=== PATIENT | male | born 1975 | race Caucasian/White ===

== ENCOUNTER 2022-08-03 08:37 | Emergency (ER) | payer BC, OTHER ==
[~2022-08-03] VITALS: Ht 180 cm; Wt 63.5 kg
--- NOTE | 2022-08-03 09:47 | ED Lower Extremity ---
General Chief Complaint: Lower Extremity Stated Complaint: LT ANKLE PAIN Nursing Triage Note: STARTED HAVING PAIN LAST NIGHT AND NOW IS UNABLE TO BEAR WEIGHT WITHOUT PAIN. Source: patient Exam Limitations: no limitations ([place]AN) History of Present Illness Date Seen by Provider: Aug 03, 2022 Time Seen by Provider: 09:40 Initial Comments Patient is a 47 y/o M with history of back stimulator placed in left side who pr esents to the ER with CC of left ankle pain onset a couple days ago. Patient reports he has been having sharp pain over the anterior portion of the left lower extremity that he rates at a 8/10. States movement of the left ankle makes it worse and he is unable to bear weight on the ankle without pain. Patient reports last Ibuprofen dose at 10:30 pm last night but it did not help. He works at [employer]. Denies any numbness or tingling. Pain/Injury Location: left ankle ([place]AN) Allergies and Home Medications Allergies Coded Allergies: No Known Drug Allergies (Unverified , 08/03/22) Patient Home Medication List Home Medication List Reviewed: Yes ([place]) Home Medication List Reviewed: Yes (ADELA HERRERA MD) Cephalexin (Cephalexin) 500 Mg Tablet, 500 MG PO TID Prescribed by: ADELA HERRERA on 08/03/22 1107 Review of Systems Musculoskeletal: joint pain, joint swelling ([place]) Constitutional: see HPI (ADELA HERRERA MD) Past Iyomwxb-Aiqkjk-Yhgaiu Hx Patient Social History Tobacco Use?: Yes Tobacco type used: Cigarettes Smoking Status: Current Everyday Smoker Use of E-Cig and/or Vaping dev: Yes E-Cig or Vaping type used: Nicotine Substance use?: No Alcohol Use?: Yes Alcohol type: Beer Alcohol Frequency: Once in a while Pt feels they are or have been: No (LOS [place]ORDAN) Immunizations Up To Date Influenza Vaccine Up-to-Date: Yes; Up-to-Date First/Initial COVID19 Vaccinat: 2020 Second COVID19 Vaccination Chon: 2020 Third COVID19 Vaccination Date: 2020 (LOS [place]AN) Past Medical History Surgery/Hospitalization HX: denies ([place]) Physical Exam Vital Signs Vital Signs - First Documented 08/03/22 09:13 Temp 36.5 Pulse 68 Resp 18 B/P (MAP) 103/69 (80) Pulse Ox 98 O2 Delivery Room Air (ADELA HERRERA MD) Vital Signs Capillary Refill : Less Than 3 Seconds ([place]) Height, Weight, BMI Height: '" Weight: lbs. oz. kg; 19.00 BMI Method: General Appearance: WD/WN, no apparent distress Knees: bilateral knee non-tender, bilateral knee normal inspection, bilateral knee normal range of motion Ankles: right ankle non-tender, right ankle normal inspection, right ankle normal range of motion, right ankle no evidence of injury; left ankle bone tenderness, left ankle limited range of motion, left ankle pain, left ankle swelling Feet: bilateral foot non-tender, bilateral foot normal inspection, bilateral foot normal range of motion, bilateral foot no evidence of injury Neurologic/Tendon: normal sensation ([place]) Progress/Results/Core Measures Results/Orders My Orders Orders - ADELA HERRERA MD Ankle, Left, 3 Views (08/03/22 10:01) (ADELA HERRERA MD) Vital Signs/I&O 08/03/22 08/03/22 09:13 11:22 Temp 36.5 Pulse 68 63 Resp 18 18 B/P (MAP) 103/69 (80) 120/78 Pulse Ox 98 98 O2 Delivery Room Air Room Air (ADELA HERRERA MD) Blood Pressure Mean: 80 Progress Progress Note : Time: 11:00 Progress Note Patient seen and examined by me - I have performed an independant HPI and PE - I agree with the medical students documentation. 47yo with 2 days of right ankle (anterior) swelling and discomfort. no known injury. No f/c/n/v. Taking ibuprofen without much relief of symptoms. No other concerns. Exam remarkable for some mild edema anterior lower leg with very faint erythema and mild increased warmth. Distal NVI. Assessment: early/mild cellulitis. will send home on Keflex with return prec autions. Elevate to lessen swelling, Ibuprofen for pain. F/u with PCP. (ADELA HERRERA MD) Diagnostic Imaging Diagonstic Imaging: Xray Comments [facility], [place] NAME: CELENA STEVENSON JR [facility] REC#: [id number] PT STATUS: REG ER : 1975 PHYSICIAN: ADELA HERRERA MD ADMIT DATE: 08/03/22/ER Draft Date of Exam:08/03/22 ANKLE, LEFT, 3 VIEWS INDICATION: Started with ankle pain last night, now unable to bear weight without pain TECHNIQUE: Three views of the left ankle CORRELATION STUDY: None FINDINGS: The bony alignment is anatomic. The talar dome is intact. The ankle mortise is maintained. There is no acute fracture or dislocation. Degenerative spur like formation at the superior distal talus. Mild generalized soft tissue edema. IMPRESSION: Negative for acute bony abnormality of the ankle. Mild soft tissue edema. Dictated on workstation # [id number] Dict: 08/03/22 1024 Trans: 08/03/22 1025 DO [id number] Interpreted by: EVANGELIST BARCENAS DO Electronically signed by: (ADELA HERRERA MD) Departure Impression Primary Impression: Cellulitis of right leg without foot Disposition: 01 HOME, SELF-CARE Condition: Stable Departure-Patient Inst. Decision time for Depature: 11:03 (ADELA HERRERA MD) Referrals: [facility],LOCAL PHYSICIAN (PCP) Primary Care Physician Patient Instructions: Cellulitis (Skin Infection), Adult ED Add. Discharge Instructions: Elevate your right ankle to keep the swelling down. Over the counter Ibuprofen 3 pills every 6 hours as needed for pain. Take the keflex antibiotic for 7 days. Come back to the emergency room for any worsening swelling, high fever, worse pain or other emergent, concerning symptoms. Scripts Cephalexin (Cephalexin) 500 Mg Tablet 500 MG PO TID for 7 Days, #21 TAB Prov: ADELA HERRERA MD 08/03/22 Work/School Note: Work Release Form Date Seen in the Emergency Department: Aug 03, 2022 Return to Work: Aug 04, 2022 Verification and Attestation of Medical Student E/M Service A medical student performed and documented this service in my presence. I reviewed and verified all information documented by the medical student and made modifications to such information, when appropriate. I personally performed the physical exam and medical decision making. Adela Herrera, Aug 04, 2022,06:42 (ADELA HERRERA MD) Copy Copies To 1: [place] NATASHA Aug 03, 2022 09:47 ADELA HERRERA MD Aug 03, 2022 11:07
--- NOTE | 2022-08-03 10:25 | Diagnostic Imaging Report ---
INDICATION: Started with ankle pain last night, now unable to bear weight without pain TECHNIQUE: Three views of the left ankle CORRELATION STUDY: None FINDINGS: The bony alignment is anatomic. The talar dome is intact. The ankle mortise is maintained. There is no acute fracture or dislocation. Degenerative spur like formation at the superior distal talus. Mild generalized soft tissue edema. IMPRESSION: Negative for acute bony abnormality of the ankle. Mild soft tissue edema. Dictated by: Dictated on workstation # [id number]
[2022-08-03] MEDS ORDERED: CEPH500T PO (11:07)
[2022-08-03 11:22] VITALS: BP 120/78
== END 2022-08-03 11:22 | disposition home or self-care (01) ==
LOC: ER 08:41
DX: L03.115 Cellulitis of right lower limb (principal); M25.572 Pain in left ankle and joints of left foot; F17.210 Nicotine dependence, cigarettes, uncomplicated; F17.290 Nicotine dependence, other tobacco product, uncomplicated
CPT/HCPCS: 73610